=== PATIENT | female | born 1985 | race African-American/Black ===

== ENCOUNTER 2017-10-18 21:11 | Emergency (ER) | payer OTHER, MEDICAID ==
[~2017-10-18] VITALS: Ht 162.6 cm; Wt 127.0 kg
[~2017-10-18 21:11] MED LIST: CIPRO500 MG PO; CLONAZEPAM 1 MG1 M1 PO; HYDROCODONE-AP1 EAC6 PO; KEFLEX500 MG PO; NAPROSYN500 MG; PREDNISONE 20 M20 M1 PO; PROAIR HFA8.5 GM INH; PROMETHAZINE-D120 ML PO; ZOFRAN ODT4 MG PO
[2017-10-18 22:21] VITALS: BP 131/81
== END 2017-10-18 22:22 | disposition home or self-care (01) ==
LOC: M.ERS 21:11
DX: S93.491A Sprain of other ligament of right ankle, initial encounter (principal); J45.909 Unspecified asthma, uncomplicated; F41.9 Anxiety disorder, unspecified; Z91.013 Allergy to seafood; Z91.041 Radiographic dye allergy status; X50.9XXA Other and unspecified overexertion or strenuous movements or postures, initial encounter; Y93.89 Activity, other specified; Y92.89 Other specified places as the place of occurrence of the external cause; Y99.8 Other external cause status

== ENCOUNTER 2018-02-12 16:45 | Emergency (ER) | payer OTHER, MEDICAID ==
[~2018-02-12] VITALS: Ht 162.6 cm; Wt 124.7 kg
[2018-02-12 17:34] LABS: ABSOLUTE LYMPHOCYTES 2.2 thou/uL (0.8-5.3); ABSOLUTE MONOCYTES 0.3 thou/uL (0.0-1.2); ABSOLUTE NEUTROPHILS 2.7 thou/uL (1.6-8.1); BASOPHILS 0.7 %; EOSINOPHILS 0.8 %; HEMATOCRIT 32.5 % (37.0-47.0); HEMOGLOBIN 10.4 gm/dL (12.0-15.0); LYMPHOCYTES 41.5 %; MCH 25.1 pg (26.0-34.0); MCHC 32.1 g/dL (28.0-37.0); MCV 78.1 fL (80.0-100.0); MONOCYTES 6.5 %; MPV 8.4 fl. (7.2-11.1); NUCLEATED RBCS 0 /100WBC; PLATELET COUNT* 243 thou/uL (150-400); POLYS 50.5 %; RBC 4.16 mil/uL (4.20-5.00); RDW-CV 15.1 % (10.5-14.5); WBC 5.3 thou/uL (4.0-11.0)
[2018-02-12 17:57] LABS: CALCIUM 8.6 mg/dL (8.5-10.1); CREATININE 1.1 mg/dL (0.6-1.3); POTASSIUM 3.6 mmol/L (3.5-5.1)
[2018-02-12 18:01] LABS: ALBUMIN 3.9 g/dL (3.4-5.0); TOTAL BILIRUBIN 0.5 mg/dL (<0.1-1.0); TOTAL PROTEIN 8.5 g/dL (6.4-8.2)
[2018-02-12 18:43] LABS: URINE BILIRUBIN NEGATIVE (Negative); URINE BLOOD NEGATIVE (Negative); URINE CLARITY CLEAR; URINE COLOR YELLOW; URINE GLUCOSE-RANDOM NEGATIVE (Negative); URINE KETONES NEGATIVE (Negative); URINE LEUKOCYTES-REFLEX NEGATIVE (Negative); URINE NITRITE-REFLEX NEGATIVE (Negative); URINE PROTEIN TRACE (Negative); URINE SPECIFIC GRAVITY >= 1.030 (1.005-1.030); URINE UROBILINOGEN 0.2 E.U./dl (0.2-1.0)
[2018-02-12] MEDS ORDERED: OMEPRAZOLE40 MG PO (19:57)
[2018-02-12] MEDS ORDERED: CARAFATE 1 GM TA1 GM PO (19:57)
[2018-02-12] MEDS ORDERED: ZOFRAN4 MG PO (19:57)
[2018-02-12 20:17] VITALS: BP 132/68
== END 2018-02-12 20:17 | disposition home or self-care (01) ==
LOC: M.ERS 16:45
PROVIDERS: Nurse Practitioner Family
DX: K27.9 Peptic ulcer, site unspecified, unspecified as acute or chronic, without hemorrhage or perforation (principal); J45.909 Unspecified asthma, uncomplicated; F41.9 Anxiety disorder, unspecified; Z98.890 Other specified postprocedural states; Z91.041 Radiographic dye allergy status; Z91.013 Allergy to seafood

== ENCOUNTER 2019-10-04 20:22 | Emergency (ER) | payer OTHER, MEDICAID ==
[~2019-10-04] VITALS: Ht 162.6 cm; Wt 115.7 kg
[~2019-10-04 20:22] MED LIST changes: +CARAFATE 1 GM TA1 GM PO; +OMEPRAZOLE40 MG PO; +ZOFRAN4 MG PO
[2019-10-04 21:30] VITALS: BP 133/79
== END 2019-10-04 21:30 | disposition home or self-care (01) ==
LOC: M.ERS 20:22
DX: J02.0 Streptococcal pharyngitis (principal); J45.909 Unspecified asthma, uncomplicated; Z91.041 Radiographic dye allergy status; Z91.013 Allergy to seafood; Z98.890 Other specified postprocedural states

== ENCOUNTER 2021-02-08 13:28 | Emergency (ER) | payer OTHER ==
[~2021-02-08] VITALS: Ht 162.6 cm; Wt 85.3 kg
[2021-02-08] MEDS ORDERED: ALBUTEROL2.5 MG/0.1 INH (13:39)
[2021-02-08] MEDS ORDERED: PREDNISONE 10 M10 MG PO (15:12)
[2021-02-08] MEDS ORDERED: PREDNISONE 20 M20 MG PO (15:12)
[2021-02-08] MEDS ORDERED: PROAIR HFA8.5 GM INH (15:12)
[2021-02-08 15:14] VITALS: BP 146/76
== END 2021-02-08 15:15 | disposition home or self-care (01) ==
LOC: M.ERS 13:28
DX: J45.901 Unspecified asthma with (acute) exacerbation (principal); Z20.822 Contact with and (suspected) exposure to COVID-19; F41.9 Anxiety disorder, unspecified; Z98.890 Other specified postprocedural states; Z79.899 Other long term (current) drug therapy; Z91.041 Radiographic dye allergy status; Z91.013 Allergy to seafood